=== PATIENT | female | born 1975 | race Caucasian/White ===

== ENCOUNTER 2019-04-05 00:03 | Inpatient (IN) | payer BC ==
[2019-04-05] MEDS ORDERED: PENDING SANTYL ORDER FOR WOUND CARE XX (02:00)
[2019-04-05] MEDS ORDERED: MAGNESIUM HYDROXIDE 30ML CUP PO (02:00)
[2019-04-05] MEDS ORDERED: ACETAMINOPHEN 325 MG TAB PO (02:00)
[2019-04-05] MEDS: METHOCARBAMOL 500 MG TAB PO (02:00)
[2019-04-05] MEDS ORDERED: ALBUTEROL HFA 8 GM INHALER INH (02:00)
[2019-04-05] MEDS: OXYCODONE/ACETAMINOPHEN (5/325) TAB PO ×5 (02:25→22:40)
[2019-04-05 03:42] LABS: ADD UMIC YES; UR ASCORBIC ACID NEGATIVE (NEGATIVE); UR BACTERIA FEW /HPF (NONE SEEN); UR BILIRUBIN (Dip) NEGATIVE (NEGATIVE); UR BLOOD (Dip) 3+ mg/dL (NEGATIVE); UR CLARITY CLEAR (CLEAR); UR COLOR RED (YELLOW); UR GLUCOSE (Dip) NEGATIVE (NEGATIVE); UR KETONES (Dip) NEGATIVE (NEGATIVE); UR LEUKOCYTE ESTERASE (Dip) NEGATIVE Leu/ul (NEGATIVE); UR NITRITE (Dip) NEGATIVE (NEGATIVE); UR RBC > 182 /HPF (0-5); UR SPECIFIC GRAVITY (Dip) 1.005 (1.003-1.030); UR SQUAMOUS EPITHELIAL CELL FEW /HPF (FEW); UR TOTAL PROTEIN (Dip) 1+ mg/dl (NEGATIVE); UR UROBILINOGEN (Dip) NEGATIVE (NEGATIVE); UR WBC 8 /HPF (0-5)
[2019-04-05] MEDS: GABAPENTIN 300 MG CAP PO ×3 (06:20→22:05)
[2019-04-05] MEDS: LEVOTHYROXINE 175 MCG TAB PO (06:20)
[2019-04-05 07:40] LABS: ADD MAN DIFF? NO
[2019-04-05 07:45] LABS: BASOPHIL # 0.1 10^3/ul (0.0-0.1); BASOPHILS % 0.7 % (0.0-2.0); EOSINOPHILS # 0.7 10^3/ul (0.0-0.5); EOSINOPHILS % 8.9 % (0.0-7.0); HEMATOCRIT 25.6 % (37.0-47.0); HEMOGLOBIN 7.9 g/dl (12.0-16.0); LYMPHOCYTES # 1.9 10^3/ul (0.8-2.9); LYMPHOCYTES % 25.1 % (15.0-51.0); MEAN CORPUSCULAR HEMOGLOBIN 31.3 pg (29.0-33.0); MEAN CORPUSCULAR HGB CONC 30.9 g/dl (32.0-37.0); MEAN CORPUSCULAR VOLUME 101.6 fl (82.0-101.0); MEAN PLATELET VOLUME 8.8 fl (7.4-10.4); MONOCYTE # 0.8 10^3/ul (0.3-0.9); MONOCYTES % 10.1 % (0.0-11.0); NUCLEATED RED BLOOD CELLS% 0.3 /100WBC (0.0-0.0); PLATELET COUNT 317 10^3/UL (140-415); RED BLOOD COUNT 2.52 10^6/ul (4.20-5.40); RED CELL DISTRIBUTION WIDTH 16.8 % (11.5-14.5)
[2019-04-05 07:45] LABS: WHITE BLOOD COUNT 7.4 10^3/ul (4.8-10.8)
[2019-04-05 08:00] LABS: ALANINE AMINOTRANSFERASE 20 IU/L (13-69); ALBUMIN 3.1 g/dl (3.3-4.9); ALKALINE PHOSPHATASE 52 IU/L (42-121); ANION GAP 5 (5-13); ASPARTATE AMINO TRANSFERASE 39 IU/L (15-46); BILIRUBIN,INDIRECT 0.4 mg/dl (0-1.1); BILIRUBIN,TOTAL 0.4 mg/dl (0.2-1.3); BLOOD UREA NITROGEN 10 mg/dl (7-20); CALCIUM 8.8 mg/dl (8.4-10.2); CARBON DIOXIDE 31 mmol/L (21-31); CHLORIDE 103 mmol/L (97-110); CREATININE 0.69 mg/dl (0.44-1.00); Estimated GFR > 60 mL/min (>60); GLUCOSE 95 mg/dl (70-220); POTASSIUM 3.9 mmol/L (3.5-5.1); SODIUM 139 mmol/L (135-144); TOTAL PROTEIN 6.2 g/dl (6.1-8.1)
[2019-04-05] MEDS: FERROUS SULFATE (EC) 325 MG TAB PO ×2 (08:38→22:05)
[2019-04-05] MEDS: DOCUSATE SODIUM 100 MG CAP PO ×2 (08:38→22:05)
[2019-04-05] MEDS: POLYETHYLENE GLYCOL 17 GM PACKET PO (08:38)
[2019-04-05] MEDS: FAMOTIDINE 20 MG TAB PO ×2 (08:39→22:05)
[2019-04-05 14:15] LABS: IRON 54 ug/dl (35-150)
[2019-04-05 14:24] LABS: % IRON SATURATION 20 % SAT (22-52); TOTAL IRON BINDING CAPACITY 269 ug/dl (241-421)
[2019-04-05 14:44] LABS: FOLATE 9.4 ng/ml (2.8-20.0)
[2019-04-05] MEDS: SENNA TAB PO (22:05)
[2019-04-06] MEDS: OXYCODONE/ACETAMINOPHEN (5/325) TAB PO ×5 (02:58→22:34)
[2019-04-06] MEDS: LEVOTHYROXINE 175 MCG TAB PO (06:51)
[2019-04-06] MEDS: GABAPENTIN 300 MG CAP PO ×3 (06:51→21:43)
[2019-04-06] MEDS: METHOCARBAMOL 750 MG TAB PO (08:50)
[2019-04-06] MEDS: DOCUSATE SODIUM 100 MG CAP PO ×2 (08:50→21:43)
[2019-04-06] MEDS: POLYETHYLENE GLYCOL 17 GM PACKET PO (08:50)
[2019-04-06] MEDS: FERROUS SULFATE (EC) 325 MG TAB PO ×2 (08:51→21:43)
[2019-04-06] MEDS: FAMOTIDINE 20 MG TAB PO ×2 (08:51→21:43)
[2019-04-06] MEDS: oxyCODONE (CR) 10 MG TAB [oxyCONTIN] PO ×2 (14:24→21:43)
[2019-04-06] MEDS: SENNA TAB PO (21:44)
[2019-04-07] MEDS: OXYCODONE/ACETAMINOPHEN (5/325) TAB PO ×4 (04:46→19:36)
[2019-04-07] MEDS: GABAPENTIN 300 MG CAP PO ×3 (06:07→21:00)
[2019-04-07] MEDS: LEVOTHYROXINE 175 MCG TAB PO (06:07)
[2019-04-07] MEDS: FERROUS SULFATE (EC) 325 MG TAB PO ×2 (09:27→20:54)
[2019-04-07] MEDS: FAMOTIDINE 20 MG TAB PO ×2 (09:27→20:54)
[2019-04-07] MEDS: oxyCODONE (CR) 10 MG TAB [oxyCONTIN] PO ×3 (09:27→20:54)
[2019-04-07] MEDS: DOCUSATE SODIUM 100 MG CAP PO ×2 (09:27→20:54)
[2019-04-07] MEDS: POLYETHYLENE GLYCOL 17 GM PACKET PO (09:28)
[2019-04-07] MEDS: LACTULOSE 30ML CUP PO (14:12)
[2019-04-07] MEDS: BISACODYL 10 MG SUPP PR (15:10)
[2019-04-07] MEDS: SENNA TAB PO (20:54)
[2019-04-08] MEDS: OXYCODONE/ACETAMINOPHEN (5/325) TAB PO ×2 (06:16→22:52)
[2019-04-08] MEDS: LEVOTHYROXINE 175 MCG TAB PO (06:16)
[2019-04-08] MEDS: GABAPENTIN 300 MG CAP PO ×3 (06:16→21:07)
[2019-04-08] MEDS: FAMOTIDINE 20 MG TAB PO ×2 (08:54→21:08)
[2019-04-08] MEDS: DOCUSATE SODIUM 100 MG CAP PO ×2 (08:55→21:08)
[2019-04-08] MEDS: FERROUS SULFATE (EC) 325 MG TAB PO ×2 (08:55→21:07)
[2019-04-08] MEDS: HYDROmorphONE 0.5 MG/0.5 ML SYG IV (08:55)
[2019-04-08] MEDS: oxyCODONE (CR) 10 MG TAB [oxyCONTIN] PO ×3 (09:54→21:10)
[2019-04-08] MEDS: POLYETHYLENE GLYCOL 17 GM PACKET PO (09:55)
[2019-04-08] MEDS ORDERED: VANCOMYCIN 1.5 GM/NS 250 ML 250 ML IVPB (10:30)
[2019-04-08 17:29] LABS: ADD MAN DIFF? NO
[2019-04-08] MEDS ORDERED: VANCOMYCIN IV PER PHARMACY XX (17:30)
[2019-04-08 17:31] LABS: BASOPHIL # 0.1 10^3/ul (0.0-0.1); BASOPHILS % 0.7 % (0.0-2.0); EOSINOPHILS # 0.7 10^3/ul (0.0-0.5); EOSINOPHILS % 7.2 % (0.0-7.0); HEMATOCRIT 26.6 % (37.0-47.0); HEMOGLOBIN 8.4 g/dl (12.0-16.0); LYMPHOCYTES # 2.3 10^3/ul (0.8-2.9); LYMPHOCYTES % 25.2 % (15.0-51.0); MEAN CORPUSCULAR HEMOGLOBIN 31.8 pg (29.0-33.0); MEAN CORPUSCULAR HGB CONC 31.6 g/dl (32.0-37.0); MEAN CORPUSCULAR VOLUME 100.8 fl (82.0-101.0); MEAN PLATELET VOLUME 8.1 fl (7.4-10.4); MONOCYTE # 0.7 10^3/ul (0.3-0.9); NEUTROPHIL # 5.2 10^3/ul (1.6-7.5); NEUTROPHILS % 57.2 % (39.0-77.0); PLATELET COUNT 460 10^3/UL (140-415); RED BLOOD COUNT 2.64 10^6/ul (4.20-5.40)
[2019-04-08 17:51] LABS: ALANINE AMINOTRANSFERASE 30 IU/L (13-69); ALBUMIN 3.6 g/dl (3.3-4.9); ALBUMIN/GLOBULIN RATIO 1.02; ALKALINE PHOSPHATASE 63 IU/L (42-121); ANION GAP 8 (5-13); ASPARTATE AMINO TRANSFERASE 47 IU/L (15-46); BILIRUBIN,INDIRECT 0.3 mg/dl (0-1.1); BILIRUBIN,TOTAL 0.3 mg/dl (0.2-1.3); BLOOD UREA NITROGEN 14 mg/dl (7-20); CARBON DIOXIDE 28 mmol/L (21-31); CHLORIDE 101 mmol/L (97-110); CREATININE 0.72 mg/dl (0.44-1.00); Estimated GFR > 60 mL/min (>60); GLUCOSE 107 mg/dl (70-220); POTASSIUM 4.2 mmol/L (3.5-5.1); SODIUM 137 mmol/L (135-144); TOTAL PROTEIN 7.1 g/dl (6.1-8.1)
[2019-04-08] MEDS: SENNA TAB PO (21:07)
[2019-04-08] MEDS: CEFEPIME 1GM/50 ML (PMX) 50 ML IVPB (23:28)
[2019-04-09] MEDS: VANCOMYCIN HCL 2 GM in SOD CHLORIDE 0.9% 500 ML IVPB (00:19)
[2019-04-09] MEDS: OXYCODONE/ACETAMINOPHEN (5/325) TAB PO ×3 (03:38→22:19)
[2019-04-09] MEDS: LEVOTHYROXINE 175 MCG TAB PO (06:53)
[2019-04-09] MEDS: GABAPENTIN 300 MG CAP PO ×3 (06:53→21:11)
[2019-04-09] MEDS: CEFEPIME 1GM/50 ML (PMX) 50 ML IVPB ×2 (08:34→21:15)
[2019-04-09] MEDS: FAMOTIDINE 20 MG TAB PO ×2 (08:44→21:07)
[2019-04-09] MEDS: oxyCODONE (CR) 10 MG TAB [oxyCONTIN] PO ×3 (08:47→21:07)
[2019-04-09] MEDS: FERROUS SULFATE (EC) 325 MG TAB PO ×2 (08:47→21:07)
[2019-04-09] MEDS: POLYETHYLENE GLYCOL 17 GM PACKET PO (08:47)
[2019-04-09] MEDS: DOCUSATE SODIUM 100 MG CAP PO ×2 (08:48→21:06)
[2019-04-09] MEDS ORDERED: VANCOMYCIN 1.5 GM/NS 250 ML 250 ML IVPB (10:30)
[2019-04-09] MEDS: VANCOMYCIN 1.5 GM/NS 250 ML 250 ML IVPB ×2 (10:38→23:05)
[2019-04-09] MEDS: SENNA TAB PO (21:07)
[2019-04-09] MEDS: SACCHAROMYCES BOULARDII 250 MG CAP PO (21:07)
[2019-04-09] MEDS: METHOCARBAMOL 750 MG TAB PO (21:11)
[2019-04-10] MEDS: OXYCODONE/ACETAMINOPHEN (5/325) TAB PO ×3 (03:05→20:47)
[2019-04-10] MEDS: GABAPENTIN 300 MG CAP PO ×3 (06:16→20:55)
[2019-04-10] MEDS: LEVOTHYROXINE 175 MCG TAB PO (06:16)
[2019-04-10] MEDS: FERROUS SULFATE (EC) 325 MG TAB PO ×2 (08:39→20:45)
[2019-04-10] MEDS: SACCHAROMYCES BOULARDII 250 MG CAP PO ×2 (08:39→20:45)
[2019-04-10] MEDS: oxyCODONE (CR) 10 MG TAB [oxyCONTIN] PO ×3 (08:39→21:10)
[2019-04-10] MEDS: CEFEPIME 1GM/50 ML (PMX) 50 ML IVPB (08:39)
[2019-04-10] MEDS: FAMOTIDINE 20 MG TAB PO ×2 (08:39→20:45)
[2019-04-10] MEDS: DOCUSATE SODIUM 100 MG CAP PO ×2 (08:46→20:45)
[2019-04-10] MEDS: POLYETHYLENE GLYCOL 17 GM PACKET PO (08:47)
[2019-04-10] MEDS: VANCOMYCIN LEVEL TROUGH*RX DRUG LEVEL ORDER REMINDER XX (09:38)
[2019-04-10 09:59] LABS: BLOOD UREA NITROGEN 11 mg/dl (7-20)
[2019-04-10 09:59] LABS: CREATININE 0.73 mg/dl (0.44-1.00)
[2019-04-10 10:03] LABS: VANCOMYCIN,TROUGH 15.7 ug/ml (10.0-20.0)
[2019-04-10] MEDS: VANCOMYCIN 1.5 GM/NS 250 ML 250 ML IVPB (11:39)
[2019-04-10] MEDS: SENNA TAB PO (20:45)
[2019-04-11] MEDS: OXYCODONE/ACETAMINOPHEN (5/325) TAB PO ×4 (04:29→19:47)
[2019-04-11] MEDS: LEVOTHYROXINE 175 MCG TAB PO (06:08)
[2019-04-11] MEDS: GABAPENTIN 300 MG CAP PO ×3 (06:08→21:05)
[2019-04-11] MEDS: SACCHAROMYCES BOULARDII 250 MG CAP PO ×2 (08:42→21:05)
[2019-04-11] MEDS: DOCUSATE SODIUM 100 MG CAP PO ×2 (08:42→21:05)
[2019-04-11] MEDS: FAMOTIDINE 20 MG TAB PO ×2 (08:42→21:05)
[2019-04-11] MEDS: POLYETHYLENE GLYCOL 17 GM PACKET PO (08:44)
[2019-04-11] MEDS: FERROUS SULFATE (EC) 325 MG TAB PO ×2 (08:44→21:05)
[2019-04-11] MEDS: oxyCODONE (CR) 10 MG TAB [oxyCONTIN] PO ×3 (09:55→21:06)
[2019-04-11] MEDS: SENNA TAB PO (21:05)
[2019-04-12] MEDS: OXYCODONE/ACETAMINOPHEN (5/325) TAB PO ×5 (00:53→19:51)
[2019-04-12] MEDS: GABAPENTIN 300 MG CAP PO ×3 (04:59→21:57)
[2019-04-12] MEDS: LEVOTHYROXINE 175 MCG TAB PO (04:59)
[2019-04-12] MEDS: POLYETHYLENE GLYCOL 17 GM PACKET PO (08:51)
[2019-04-12] MEDS: FAMOTIDINE 20 MG TAB PO ×2 (08:52→20:28)
[2019-04-12] MEDS: METHOCARBAMOL 750 MG TAB PO (08:52)
[2019-04-12] MEDS: FERROUS SULFATE (EC) 325 MG TAB PO ×2 (08:52→20:28)
[2019-04-12] MEDS: oxyCODONE (CR) 10 MG TAB [oxyCONTIN] PO ×3 (08:52→21:58)
[2019-04-12] MEDS: SACCHAROMYCES BOULARDII 250 MG CAP PO ×2 (08:52→20:31)
[2019-04-12] MEDS: DOCUSATE SODIUM 100 MG CAP PO ×2 (08:52→20:28)
[2019-04-12] MEDS: ZINC SULFATE 220 MG CAP PO (11:00)
[2019-04-12] MEDS: ASCORBIC ACID 500 MG TAB PO (11:00)
[2019-04-12] MEDS: MULTIVITAMINS THERAPEUTIC TAB PO (11:00)
[2019-04-12] MEDS: SENNA TAB PO (20:28)
[2019-04-13] MEDS: OXYCODONE/ACETAMINOPHEN (5/325) TAB PO ×4 (01:56→20:44)
[2019-04-13] MEDS: METHOCARBAMOL 750 MG TAB PO (01:56)
[2019-04-13] MEDS: LEVOTHYROXINE 175 MCG TAB PO (06:45)
[2019-04-13] MEDS: GABAPENTIN 300 MG CAP PO ×3 (06:45→22:42)
[2019-04-13] MEDS: oxyCODONE (CR) 10 MG TAB [oxyCONTIN] PO ×3 (06:45→22:43)
[2019-04-13] MEDS: DOCUSATE SODIUM 100 MG CAP PO ×2 (08:39→20:45)
[2019-04-13] MEDS: ASCORBIC ACID 500 MG TAB PO (08:40)
[2019-04-13] MEDS: MULTIVITAMINS THERAPEUTIC TAB PO (08:40)
[2019-04-13] MEDS: FERROUS SULFATE (EC) 325 MG TAB PO ×2 (08:40→20:45)
[2019-04-13] MEDS: SACCHAROMYCES BOULARDII 250 MG CAP PO ×2 (08:40→20:46)
[2019-04-13] MEDS: ZINC SULFATE 220 MG CAP PO (08:40)
[2019-04-13] MEDS: FAMOTIDINE 20 MG TAB PO ×2 (08:41→20:45)
[2019-04-13] MEDS: POLYETHYLENE GLYCOL 17 GM PACKET PO (09:00)
[2019-04-13] MEDS: DULOXETINE 30 MG CAP DR PO (12:18)
[2019-04-13] MEDS: SENNA TAB PO (20:45)
[2019-04-14] MEDS: OXYCODONE/ACETAMINOPHEN (5/325) TAB PO ×5 (04:04→23:19)
[2019-04-14] MEDS: GABAPENTIN 300 MG CAP PO ×3 (06:21→21:18)
[2019-04-14] MEDS: LEVOTHYROXINE 175 MCG TAB PO (06:21)
[2019-04-14] MEDS: oxyCODONE (CR) 10 MG TAB [oxyCONTIN] PO ×3 (06:25→21:19)
[2019-04-14] MEDS: MULTIVITAMINS THERAPEUTIC TAB PO (08:23)
[2019-04-14] MEDS: FERROUS SULFATE (EC) 325 MG TAB PO ×2 (08:24→21:18)
[2019-04-14] MEDS: SACCHAROMYCES BOULARDII 250 MG CAP PO ×2 (08:24→21:18)
[2019-04-14] MEDS: FAMOTIDINE 20 MG TAB PO ×2 (08:24→21:18)
[2019-04-14] MEDS: ZINC SULFATE 220 MG CAP PO (08:24)
[2019-04-14] MEDS: ASCORBIC ACID 500 MG TAB PO (08:24)
[2019-04-14] MEDS: DULOXETINE 30 MG CAP DR PO (08:24)
[2019-04-14] MEDS: DOCUSATE SODIUM 100 MG CAP PO ×2 (08:24→21:18)
[2019-04-14] MEDS: POLYETHYLENE GLYCOL 17 GM PACKET PO (08:25)
[2019-04-14 12:26] LABS: ADD MAN DIFF? NO
[2019-04-14 12:28] LABS: BASOPHIL # 0.1 10^3/ul (0.0-0.1); BASOPHILS % 0.6 % (0.0-2.0); EOSINOPHILS # 0.6 10^3/ul (0.0-0.5); EOSINOPHILS % 6.6 % (0.0-7.0); HEMATOCRIT 29.9 % (37.0-47.0); HEMOGLOBIN 9.2 g/dl (12.0-16.0); LYMPHOCYTES # 1.9 10^3/ul (0.8-2.9); LYMPHOCYTES % 22.2 % (15.0-51.0); MEAN CORPUSCULAR HEMOGLOBIN 31.7 pg (29.0-33.0); MEAN CORPUSCULAR HGB CONC 30.8 g/dl (32.0-37.0); MEAN CORPUSCULAR VOLUME 103.1 fl (82.0-101.0); MEAN PLATELET VOLUME 7.9 fl (7.4-10.4); MONOCYTE # 0.6 10^3/ul (0.3-0.9); MONOCYTES % 7.3 % (0.0-11.0); NEUTROPHIL # 5.2 10^3/ul (1.6-7.5); NEUTROPHILS % 62.8 % (39.0-77.0); PLATELET COUNT 591 10^3/UL (140-415); RED CELL DISTRIBUTION WIDTH 15.7 % (11.5-14.5)
[2019-04-14 12:28] LABS: WHITE BLOOD COUNT 8.3 10^3/ul (4.8-10.8)
[2019-04-14 13:04] LABS: FREE THYROXINE INDEX (Calc) 2.28 ug/ml (0.65-3.89); T3 UPTAKE 35.1 % (23.5-40.5); T4 (THYROXINE) 6.5 ug/dl (5.5-11.0)
[2019-04-14] MEDS: SENNA TAB PO (21:18)
[2019-04-14] MEDS: METHOCARBAMOL 750 MG TAB PO (23:19)
[2019-04-15] MEDS: OXYCODONE/ACETAMINOPHEN (5/325) TAB PO ×4 (04:40→18:20)
[2019-04-15] MEDS: GABAPENTIN 300 MG CAP PO ×3 (06:42→21:44)
[2019-04-15] MEDS: LEVOTHYROXINE 175 MCG TAB PO (06:42)
[2019-04-15] MEDS: oxyCODONE (CR) 10 MG TAB [oxyCONTIN] PO ×3 (06:42→21:46)
[2019-04-15] MEDS: POLYETHYLENE GLYCOL 17 GM PACKET PO (09:05)
[2019-04-15] MEDS: MULTIVITAMINS THERAPEUTIC TAB PO (09:05)
[2019-04-15] MEDS: ZINC SULFATE 220 MG CAP PO (09:05)
[2019-04-15] MEDS: FAMOTIDINE 20 MG TAB PO ×2 (09:06→21:46)
[2019-04-15] MEDS: FERROUS SULFATE (EC) 325 MG TAB PO ×2 (09:06→21:45)
[2019-04-15] MEDS: METHOCARBAMOL 750 MG TAB PO (09:06)
[2019-04-15] MEDS: DOCUSATE SODIUM 100 MG CAP PO ×2 (09:06→21:46)
[2019-04-15] MEDS: ASCORBIC ACID 500 MG TAB PO ×2 (09:06→21:45)
[2019-04-15] MEDS: DULOXETINE 30 MG CAP DR PO (09:06)
[2019-04-15] MEDS: SACCHAROMYCES BOULARDII 250 MG CAP PO ×2 (09:06→21:45)
[2019-04-15 13:29] LABS: HEPATITIS B SURFACE ANTIGEN NEGATIVE (NEGATIVE)
[2019-04-15 13:47] LABS: HEPATITIS C VIRAL ANTIBODY NEGATIVE (NEGATIVE)
[2019-04-15 15:50] LABS: RAPID PLASMA REAGIN NONREACTIVE (NR)
[2019-04-15] MEDS: SENNA TAB PO (21:45)
[2019-04-16] MEDS: OXYCODONE/ACETAMINOPHEN (5/325) TAB PO ×5 (04:38→20:54)
[2019-04-16] MEDS: GABAPENTIN 300 MG CAP PO ×3 (06:45→22:08)
[2019-04-16] MEDS: LEVOTHYROXINE 175 MCG TAB PO (06:45)
[2019-04-16] MEDS: oxyCODONE (CR) 10 MG TAB [oxyCONTIN] PO ×3 (06:46→22:08)
[2019-04-16] MEDS: DULOXETINE 30 MG CAP DR PO (08:58)
[2019-04-16] MEDS: ASCORBIC ACID 500 MG TAB PO ×2 (08:58→20:53)
[2019-04-16] MEDS: FERROUS SULFATE (EC) 325 MG TAB PO ×2 (08:58→20:53)
[2019-04-16] MEDS: POLYETHYLENE GLYCOL 17 GM PACKET PO (08:58)
[2019-04-16] MEDS: FAMOTIDINE 20 MG TAB PO ×2 (08:58→20:54)
[2019-04-16] MEDS: METHOCARBAMOL 750 MG TAB PO (08:59)
[2019-04-16] MEDS: SACCHAROMYCES BOULARDII 250 MG CAP PO ×2 (08:59→20:53)
[2019-04-16] MEDS: DOCUSATE SODIUM 100 MG CAP PO ×2 (08:59→20:53)
[2019-04-16] MEDS: MULTIVITAMINS THERAPEUTIC TAB PO (08:59)
[2019-04-16] MEDS: ZINC SULFATE 220 MG CAP PO (08:59)
[2019-04-16] MEDS: SENNA TAB PO (20:54)
[2019-04-17] MEDS: OXYCODONE/ACETAMINOPHEN (5/325) TAB PO ×4 (02:28→20:49)
[2019-04-17] MEDS: LEVOTHYROXINE 175 MCG TAB PO (06:45)
[2019-04-17] MEDS: GABAPENTIN 300 MG CAP PO ×3 (06:45→21:51)
[2019-04-17] MEDS: oxyCODONE (CR) 10 MG TAB [oxyCONTIN] PO ×3 (06:46→21:51)
[2019-04-17] MEDS: DULOXETINE 30 MG CAP DR PO (09:19)
[2019-04-17] MEDS: FERROUS SULFATE (EC) 325 MG TAB PO ×2 (09:19→21:52)
[2019-04-17] MEDS: ASCORBIC ACID 500 MG TAB PO ×2 (09:19→21:51)
[2019-04-17] MEDS: FAMOTIDINE 20 MG TAB PO ×2 (09:20→21:51)
[2019-04-17] MEDS: POLYETHYLENE GLYCOL 17 GM PACKET PO (09:20)
[2019-04-17] MEDS: SACCHAROMYCES BOULARDII 250 MG CAP PO ×2 (09:20→21:51)
[2019-04-17] MEDS: MULTIVITAMINS THERAPEUTIC TAB PO (09:20)
[2019-04-17] MEDS: DOCUSATE SODIUM 100 MG CAP PO ×2 (09:20→21:51)
[2019-04-17] MEDS: ZINC SULFATE 220 MG CAP PO (09:20)
[2019-04-17] MEDS: CEPHALEXIN 250 MG CAP PO ×3 (09:29→21:52)
[2019-04-17] MEDS: NEOMYC/POLYMYX/BACIT 30 GM OINT TOP ×2 (09:29→21:54)
[2019-04-17] MEDS: METHOCARBAMOL 750 MG TAB PO (12:35)
[2019-04-17] MEDS: SENNA TAB PO (21:52)
[2019-04-18] MEDS: oxyCODONE (CR) 10 MG TAB [oxyCONTIN] PO ×3 (06:31→21:43)
[2019-04-18] MEDS: LEVOTHYROXINE 175 MCG TAB PO (06:31)
[2019-04-18] MEDS: CEPHALEXIN 250 MG CAP PO (06:31)
[2019-04-18] MEDS: GABAPENTIN 300 MG CAP PO ×3 (06:32→20:15)
[2019-04-18] MEDS: POLYETHYLENE GLYCOL 17 GM PACKET PO (08:53)
[2019-04-18] MEDS: OXYCODONE/ACETAMINOPHEN (5/325) TAB PO ×3 (08:53→19:43)
[2019-04-18] MEDS: DULOXETINE 30 MG CAP DR PO (08:53)
[2019-04-18] MEDS: FAMOTIDINE 20 MG TAB PO ×2 (08:53→20:13)
[2019-04-18] MEDS: METHOCARBAMOL 750 MG TAB PO (08:53)
[2019-04-18] MEDS: ZINC SULFATE 220 MG CAP PO (08:54)
[2019-04-18] MEDS: DOCUSATE SODIUM 100 MG CAP PO ×2 (08:54→21:00)
[2019-04-18] MEDS: FERROUS SULFATE (EC) 325 MG TAB PO ×2 (08:54→20:12)
[2019-04-18] MEDS: ASCORBIC ACID 500 MG TAB PO ×2 (08:54→20:12)
[2019-04-18] MEDS: SACCHAROMYCES BOULARDII 250 MG CAP PO ×2 (08:54→20:13)
[2019-04-18] MEDS: MULTIVITAMINS THERAPEUTIC TAB PO (08:55)
[2019-04-18] MEDS: NEOMYC/POLYMYX/BACIT 30 GM OINT TOP ×2 (08:55→20:11)
[2019-04-18] MEDS ORDERED: VANCOMYCIN IV PER PHARMACY XX (15:00)
[2019-04-18] MEDS: CEPHALEXIN 500 MG CAP PO ×2 (15:06→21:43)
[2019-04-18] MEDS: VANCOMYCIN HCL 2 GM in SOD CHLORIDE 0.9% 500 ML IVPB (17:16)
[2019-04-18] MEDS: SENNA TAB PO (21:00)
[2019-04-19] MEDS: OXYCODONE/ACETAMINOPHEN (5/325) TAB PO ×3 (00:20→11:15)
[2019-04-19] MEDS: VANCOMYCIN 1.5 GM/NS 250 ML 250 ML IVPB (05:28)
[2019-04-19] MEDS: CEPHALEXIN 500 MG CAP PO ×2 (05:30→13:40)
[2019-04-19] MEDS: LEVOTHYROXINE 175 MCG TAB PO (05:30)
[2019-04-19] MEDS: GABAPENTIN 300 MG CAP PO ×2 (05:30→13:40)
[2019-04-19] MEDS: oxyCODONE (CR) 10 MG TAB [oxyCONTIN] PO ×2 (06:39→13:40)
[2019-04-19] MEDS: METHOCARBAMOL 750 MG TAB PO (08:54)
[2019-04-19] MEDS: MULTIVITAMINS THERAPEUTIC TAB PO (08:54)
[2019-04-19] MEDS: DULOXETINE 30 MG CAP DR PO (08:54)
[2019-04-19] MEDS: FERROUS SULFATE (EC) 325 MG TAB PO (08:54)
[2019-04-19] MEDS: SACCHAROMYCES BOULARDII 250 MG CAP PO (08:54)
[2019-04-19] MEDS: DOCUSATE SODIUM 100 MG CAP PO (08:54)
[2019-04-19] MEDS: ZINC SULFATE 220 MG CAP PO (08:54)
[2019-04-19] MEDS: FAMOTIDINE 20 MG TAB PO (08:54)
[2019-04-19] MEDS: POLYETHYLENE GLYCOL 17 GM PACKET PO (08:54)
[2019-04-19] MEDS: ASCORBIC ACID 500 MG TAB PO (08:54)
[2019-04-19] MEDS: NEOMYC/POLYMYX/BACIT 30 GM OINT TOP (08:55)
== END 2019-04-19 16:00 | disposition home health service (06) | DRG 561 ==
LOC: VRC 00:03
PROC: F07Z5ZZ Bed Mobility Treatment (ICD-10-PCS; principal; 2019-04-05)
PROC: F08Z2ZZ Grooming/Personal Hygiene Treatment (ICD-10-PCS; 2019-04-05)
DX: Z47.81 Encounter for orthopedic aftercare following surgical amputation (principal); Z89.611 Acquired absence of right leg above knee; S86.312D Strain of muscle(s) and tendon(s) of peroneal muscle group at lower leg level, left leg, subsequent encounter; D50.0 Iron deficiency anemia secondary to blood loss (chronic); E66.9 Obesity, unspecified; Z68.33 Body mass index [BMI] 33.0-33.9, adult; J45.909 Unspecified asthma, uncomplicated; F19.10 Other psychoactive substance abuse, uncomplicated; E06.3 Autoimmune thyroiditis; V89.2XXD Person injured in unspecified motor-vehicle accident, traffic, subsequent encounter; F06.31 Mood disorder due to known physiological condition with depressive features; F43.10 Post-traumatic stress disorder, unspecified; F15.10 Other stimulant abuse, uncomplicated
CPT/HCPCS: 73550; 73562; 73630-LT; 76536; 80053; 80202; 81001; 82565; 82607; 82728; 82746; 83540; 84436; 84443; 84479; 84520; 85025; 86592; 86803; 87070; 87081; 87086; 87340; 92523; 93971; 97110; 97116; 97163; 97167; 97530; 97535; 97542